=== PATIENT | female | born 1980 | race Two or more races ===

== ENCOUNTER 2019-02-09 15:59 | Emergency (ER) | payer MEDICAID ==
[~2019-02-09] VITALS: Ht 157.5 cm; Wt 61.9 kg
[~2019-02-09 15:59] MED LIST: MIRT1TAB38 PO
[2019-02-09 19:10] VITALS: BP 112/82
== END 2019-02-09 19:20 | disposition home or self-care (01) ==
LOC: ER 15:59
DX: L02.216 Cutaneous abscess of umbilicus (principal); Z48.01 Encounter for change or removal of surgical wound dressing; Z88.0 Allergy status to penicillin; Z88.1 Allergy status to other antibiotic agents; Z79.899 Other long term (current) drug therapy